=== PATIENT | female | born 1955 ===

== ENCOUNTER → 2022-10-17 15:30 | Outpatient (CLI) | payer MEDICARE, SELFPAY ==
--- NOTE | 2022-10-17 15:34 | DI.RAD.S_ITS ---
PROCEDURE: XR TOE RT MIN 2V INDICATIONS: Great toe injury TECHNIQUE: 3 views of the right toe(s) acquired. COMPARISON: None. FINDINGS: Bones: Prior bony fusion at 1st TMT joint is seen with near complete bony fusion noted. No gross hardware loosening or failure is seen. Moderate hallux valgus is seen. 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 No acute fractures or dislocations. Moderate osteoarthritic changes are noted throughout right foot. No suspicious bony lesions. Soft tissues: No suspicious soft tissue densities. IMPRESSION: No gross acute right great toe fracture or dislocation. Prior fusion of 1st TMT joint. No gross hardware loosening or failure. Osteoarthritic changes throughout right great toe. Dictated by: Francisco Javier Gregorio M.D. on 10/17/2022 at 16:59 Approved by: Francisco Javier Gregorio M.D. on 10/17/2022 at 17:04
== END ==
PROVIDERS: Referring Provider Nurse Practitioner Family; Visit Provider Nurse Practitioner Family
DX: S99.921A Unspecified injury of right foot, initial encounter (principal); X58.XXXA Exposure to other specified factors, initial encounter
CPT/HCPCS: 73660